=== PATIENT | male | born 1980 | race American Indian/Alaskan Native ===

== ENCOUNTER 2020-08-18 10:30 | Emergency (ER) | payer SELFPAY ==
[2020-08-18 12:40] LABS: Basophils % (Auto) 0.3 % (0.0-1.8); Eosinophils % (Auto) 0.4 % (0.0-4.3); Hematocrit 38.8 % (35.5-45.6); Hemoglobin 12.6 gm/dl (11.8-15.2); Lymphocytes # (Auto) 2.7 K/mm3 (1.2-5.4); Lymphocytes % (Auto) 40.1 % (13.4-35.0); Mean Corpuscular HGB Conc 32 % (32-34); Mean Corpuscular Volume 84 fl (84-94); Monocytes # (Auto) 0.6 K/mm3 (0.0-0.8); Monocytes % (Auto) 8.9 % (0.0-7.3); Platelet Count 392 K/mm3 (140-440); Red Blood Count 4.61 M/mm3 (3.65-5.03); Red Cell Distribution Width 15.7 % (13.2-15.2)
[2020-08-18 13:01] LABS: Alanine Aminotransferase 15 units/L (7-56); Albumin 3.6 g/dL (3.9-5); BUN/Creatinine Ratio 18; Blood Urea Nitrogen 21 mg/dL (9-20); Calcium 8.9 mg/dL (8.4-10.2); Hemolysis Index 5
[2020-08-18 17:40] LABS: Amphetamine Screen,Urine PRESUMPTIVE POSITIVE; Benzodiazepines Screen,Urine PRESUMPTIVE NEGATIVE; Cannabinoid Screen,Urine PRESUMPTIVE NEGATIVE; Cocaine Screen,Urine PRESUMPTIVE NEGATIVE; Methadone Screen,Urine PRESUMPTIVE NEGATIVE; Opiate Screen,Urine PRESUMPTIVE NEGATIVE
[2020-08-18 17:41] LABS: Bilirubin,Urine NEG (Negative); Blood,Urine NEG (Negative); Color,Urine Yellow (Yellow); Mucus,Urine 3+ /HPF
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
[2020-08-18] MEDS ORDERED: LIDOCAINE-MPF (1%) 10 MG/1 ML VIAL 5 ML INFILTRATI ONE (18:53)
[2020-08-18] MEDS ORDERED: AZITHROMYCIN 250 MG TAB PO ONE (18:54)
[2020-08-18] MEDS: cephALEXin 500 MG CAP PO SCH (20:06)
[2020-08-19] MEDS: IBUPROFEN 600 MG TAB PO PRN ×2 (08:01→16:19)
[2020-08-19] MEDS: cephALEXin 500 MG CAP PO SCH ×3 (08:48→21:48)
--- NOTE | 2020-08-19 09:24 | Consultation ---
History of Present Illness - Reason for Consult Consult date: 08/19/20 Reason for consult: suicide attempt - History of Present Psychiatric Illness Per ER note: "This is a 39-year-old male with history of bipolar disorder, schizophrenia and previous suicide attempt who admits to intentional overdose and suicide attempt this morning at 5 AM. He took 15 unknown pills. He states that it was unknown pill bottle in the home. Since that time he has not had any physical symptoms. He denies headache, vomiting, chest pain or abdominal pain. He recently injured his right ankle 2 days ago. He dislocated his right ankle. He was evaluated at [facility]. He has a cast in place. He stated that the injury triggered his symptoms of depression. Due to the severe contortion of the ankle, he became scared. He was anxious. He is concerned t hat he may develop a leg clot. The injury and medical care took place 2 days ago. He injured his ankle by stepping into a large hole in the parking lot of his apartment complex. He has previously been prescribed Seroquel. However he has not taken his medication in quite some time." During my interview with 39y/o Marquis Mayes, he is a/o x 3. He is calm and cooperative. He is asking for food and states he hadn't eaten in about 4 days. The patient verbalizes feeling suicidal, depressed, and and hallucinations. He says he sees people and hearing voices telling him to "kill myself." He verbalizes using methamphetamines. The patient says "I'm homeless and I broke my leg and this add to my depression and feeling suicidal." He says he took some pills yesterday. The patient then tells me, "I want to go back home to my momma. She lives at [address] [place] [address] in [place]." The patient says he has a gun but he "hid it in an apartment complex he was living in." PAST PSYCHIATRIC HISTORY Diagnoses: Bipolar, schizophrenia Suicide attempts or Self-harm behavior: twice Prior psychiatric hospitalizations: twice Substance Abuse history: Methamphetamines Previous psychiatric medications tried: could not recall Outpatient treatment: Yes PAST MEDICAL HISTORY: none reported Family Psychiatric History: None reported or documented SOCIAL HISTORY Marital Status: / Living Arrangements: Homeless Employment Status: Unemployed Access to guns/weapons: Yes, states he hid it at an apartment complex he was living Education: Some college History of Abuse: none reported Legal History: none reported REVIEW OF SYSTEMS Constitutional: Negative for weight loss ENT: Negative for stridor Respiratory: Negative for cough or hemoptysis All other systems reviewed and are negative MENTAL STATUS EXAMINATION General Appearance and Behavior: Age appropriate, good hygiene, wearing appropriate clothes, good eye contact, cooperative polite with questioning. Cooperation: Participating/engaged Psychomotor Behavior: unremarkable and within normal limits Mood: Depressed Affect and affective range: congruent with mood Thought Process: goal oriented Thought Content: hallucinations Speech: Normal volume, Regular rate and rhythm, Suicidal Ideation: Yes Homicidal Ideation: Denies Hallucinations: A/V Delusions: None elicited Impulse Control: Unimpaired Insight and Judgment: Limited insight and judgment, Memory: Normal, Attention: Normal, Orientation: Alert, oriented, Assessment and Plan (1) Schizophrenia, Bipolar Type Current Visit: Yes Status: Acute (2) Methamphetamine Use Disorder Current Visit: Yes Status: Acute Treatment plan Start Depakote DR 125mg po BID Start Seroquel 25mg po BID Start Trazodone 50mg po qhs Start Melatonin 5mg po qhs prn Sitter: Defer to primary Medical: per primary Disposition: Recommend acute psychiatric inpatient Will follow. Thank you for this consult Case staffed with Dr. Agosto Medications and Allergies Allergies Allergy/AdvReac Type Severity Reaction Status Date / Time No Known Allergies Allergy Unverified 08/18/20 10:50 Home Medications Medication Instructions Recorded Confirmed Last Taken Type cephALEXin [Keflex] 500 mg PO Q8HR 5 Days #15 cap 08/18/20 Unknown Rx Active Meds: Active Medications Cephalexin (Cephalexin 500 Mg Cap) 500 mg PO TID MENDY; Protocol Last Admin: 08/19/20 08:48 Dose: 500 mg Documented by: Ibuprofen (Ibuprofen 600 Mg Tab) 600 mg PO Q8H PRN PRN Reason: Pain, Moderate (4-6) Last Admin: 08/19/20 08:01 Dose: 600 mg Documented by: Mental Status Exam - Vital signs Last Vital Signs Temp 98.5 F 08/19/20 07:43 Pulse 100 H 08/19/20 07:43 Resp 18 08/19/20 08:01 BP 101/61 08/19/20 07:43 Pulse Ox 97 01/19/21 07:37 Results Result Diagrams: 08/18/20 11:32 08/18/20 11:32 Abnormal lab results 08/18/20 08/18/20 08/18/20 Range/Units 11:32 11:32 11:32 MCH 27 L (28-32) pg RDW 15.7 H (13.2-15.2) % Lymph % (Auto) 40.1 H (13.4-35.0) % [place] % (Auto) 8.9 H (0.0-7.3) % BUN 21 H (9-20) mg/dL Albumin 3.6 L (3.9-5) g/dL Urine WBC (Auto) (0.0-6.0) /HPF Salicylates < 0.3 L (2.8-20.0) mg/dL Acetaminophen (10.0-30.0) ug/mL 08/18/20 08/18/20 Range/Units 11:32 17:17 MCH (28-32) pg RDW (13.2-15.2) % Lymph % (Auto) (13.4-35.0) % [place] % (Auto) (0.0-7.3) % BUN (9-20) mg/dL Albumin (3.9-5) g/dL Urine WBC (Auto) 101.0 H (0.0-6.0) /HPF Salicylates (2.8-20.0) mg/dL Acetaminophen 5.0 L (10.0-30.0) ug/mL All other labs normal.
[2020-08-19] MEDS: QUEtiapine 25 MG TAB PO SCH ×2 (09:59→21:49)
[2020-08-19] MEDS: DIVALPROEX DR 125 MG TAB PO SCH ×2 (09:59→21:48)
[2020-08-19] MEDS ORDERED: traZODone 50 MG TAB PO SCH (22:00)
[2020-08-20] MEDS: cephALEXin 500 MG CAP PO SCH ×2 (11:03→14:24)
[2020-08-20 17:10] VITALS: BP 117/69
== END 2020-08-19 20:41 | disposition other institution (70) ==
LOC: ED 10:30
DX: T50.902A Poisoning by unspecified drugs, medicaments and biological substances, intentional self-harm, initial encounter (principal); N39.0 Urinary tract infection, site not specified; R45.851 Suicidal ideations; F15.10 Other stimulant abuse, uncomplicated; F25.0 Schizoaffective disorder, bipolar type; F17.200 Nicotine dependence, unspecified, uncomplicated; Z86.69 Personal history of other diseases of the nervous system and sense organs; Z21 Asymptomatic human immunodeficiency virus [HIV] infection status; Y93.89 Activity, other specified
CPT/HCPCS: 36415; 80053; 80307; 81001; 85025; 96372; 99284; J0696; 80320; G0480

== ENCOUNTER 2020-10-11 21:04 | Emergency (ER) | payer SELFPAY ==
[2020-10-11] MEDS ORDERED: IBUPROFEN 600 MG TAB PO ONE (22:05)
[2020-10-11] MEDS ORDERED: ACETAMINOPHEN 325 MG TAB PO ONE (22:05)
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
[2020-10-12 06:40] VITALS: BP 110/70
== END 2020-10-12 06:40 | disposition home or self-care (01) ==
LOC: ED 21:04
DX: S82.841A Displaced bimalleolar fracture of right lower leg, initial encounter for closed fracture (principal); R56.9 Unspecified convulsions; F31.9 Bipolar disorder, unspecified; F20.9 Schizophrenia, unspecified; F17.200 Nicotine dependence, unspecified, uncomplicated; Z21 Asymptomatic human immunodeficiency virus [HIV] infection status; Z79.1 Long term (current) use of non-steroidal anti-inflammatories (NSAID); Z79.899 Other long term (current) drug therapy; Y04.2XXA Assault by strike against or bumped into by another person, initial encounter; Y93.89 Activity, other specified; Y92.89 Other specified places as the place of occurrence of the external cause; Y99.8 Other external cause status
CPT/HCPCS: 70450; 70486